=== PATIENT | male | born 1985 ===

== ENCOUNTER 2017-04-01 10:38 | Inpatient (IN) | payer OTHER ==
[~2017-04-01] VITALS: Ht 160 cm; Wt 53.1 kg
[2017-04-01] VITALS (9 sets, daily range): BP systolic 116–137; BP diastolic 58–94
[~2017-04-01 10:38] MED LIST: Bacitracin 50000 Units Vial ONE; Bupivacaine w/Epi 0.5% 30ml Vial INJ ONE; Surgicel 4in x 8in TOPIC ONE; Thrombin 5000 units TOPIC ONE; Vancomycin 1gm inj IVPB ONE; ceFAZolin sod 2 GM in D5W 110 ML IVPB ONE
--- NOTE | 2017-04-01 10:43 | Pre-Procedure Note/Attestation ---
Pre-Procedure Note/Attestation Complete Prior to Procedure Planned Procedure: not applicable Procedure Narrative: Right sided Hemilaminotomy foraminotomy microdiscectomy L5S1 Indications for Procedure Pre-Operative Diagnosis: L5S`1 herniated nucleus pulposus Attestation I attest that I discussed the nature of the procedure; its benefits; risks and complications; and alternatives (and the risks and benefits of such alternatives ), prior to the procedure, with the patient (or the patient's legal union representative). I attest that, if there was a reasonable possibility of needing a blood transfusion, the patient (or the patient's legal union representative) was given the [facility] standardized written summary, pursuant to the Eleuterio Myton Blood Safety Act ([place] Health and Safety Code # 1645, as amended). I attest that I re-evaluated the patient just prior to the surgery and that there has been no change in the patient's H&P, except as documented below: TODD REEDER Apr 01, 2017 10:43
[2017-04-01] MEDS ORDERED: HYDROmorphone 1mg/ml Carpuject SUBQ PRN (10:45)
[2017-04-01] MEDS ORDERED: Naloxone 0.4mg/ml Inj IVP PRN (10:45)
[2017-04-01] MEDS ORDERED: HYDROmorphone 1mg/ml Carpuject IVP PRN (10:45)
[2017-04-01] MEDS ORDERED: Milk of Magnesia 30ml Ud ORAL PRN (10:45)
[2017-04-01] MEDS ORDERED: Metoclopramide 10mg/2ml Inj IVP PRN (10:45)
[2017-04-01] MEDS ORDERED: Norco 7.5mg/325mg tab ORAL PRN ×2 (10:45)
[2017-04-01] MEDS ORDERED: Norco 5mg/325mg tab ORAL PRN ×2 (10:45→12:00)
--- NOTE | 2017-04-01 10:47 | Brief Operative Note ---
Immediate Post Operative Note Operative Note Chief Complaint: intractable back and leg pain Pre-op Diagnosis: L5S`1 herniated nucleus pulposus Procedure: Right sided Hemilaminotomy foraminotomy microdiscectomy L5S1 Post-op Diagnosis: same as pre-op Findings: consistent w/pre-op dx studies Surgeon: Willard First Cook: Lexis Anesthesia: general Specimen: none Complications: none Condition: stable Estimated Blood Loss: minimal Implant(s) used?: TODD Munoz Apr 01, 2017 10:47
[2017-04-01] MEDS ORDERED: NKM (11:17)
[2017-04-01] MEDS ORDERED: LR 1000ml 1,000 ML IVLG SCH (11:51)
--- NOTE | 2017-04-01 11:51 | Anethesia Preoperative Eval ---
Anesthesia Pre-op PMH/ROS General Date of Evaluation: Apr 01, 2017 Time of Evaluation: 11:48 ASA Score: ASA 1 Mallampati Score Class I : Soft palate, uvula, fauces, pillars visible Class II: Soft palate, uvula, fauces visible Class III: Soft palate, base of uvula visible Class IV: Only hard plate visible Mallampati Classification: Class III Surgeon: Willard Diagnosis: Lumbar HNP, radiculopathy Surgical Procedure: R Hemilaminotomy, foraminotomy, microdisectomy, decompression L5-S1 Anesthesia History: none Social History: alcohol use Family History: no anesthesia problems Allergies: Coded Allergies: No Known Allergies (Unverified , 03/31/17) Medications: see eMAR Anesthesia Pre-op Phys. Exam Physician Exam Last Vital Signs Date Time Temp Pulse Resp B/P Pulse Ox O2 Delivery O2 Flow Rate FiO2 04/01/17 11:04 98.6 56 18 121/70 100 Room Air Constitutional: NAD Neurologic: CN 2-12 intact Cardiovascular: RRR, no M/R/G Respiratory: CTA Gastrointestinal: S/NT/ND Airway Exam Mallampati Score: Class II MO: full ROM: full Teeth: missing - Right upper, left lower molars Anesthesia Pre-op A/P Labs WNL Studies Pre-op Studies: EKG - NSR, CXR - NAD Risk Assessment & Plan Assessment: Healthy Plan: GETA Status Change Before Surgery: No Pre-Antibiotics Drug: Ancef 2gm Given Within 1 Hr of Incision: Yes Time Given: 13:12 Asim Damian MD Apr 01, 2017 11:51
[2017-04-01] MEDS ORDERED: Meperidine 25mg/0.5ml Inj IV PRN (12:00)
[2017-04-01] MEDS ORDERED: Midazolam 2mg/2ml Inj IVP PRN (12:00)
[2017-04-01] MEDS ORDERED: fentaNYL 100 mcg/2 mL IV PRN (12:00)
[2017-04-01] MEDS ORDERED: Atropine Inj 1mg/10ml Syr IV PRN (12:00)
[2017-04-01] MEDS ORDERED: Hydromorphone 0.5mg/0.5ml inj IVP PRN (12:00)
--- NOTE | 2017-04-01 14:47 | Immediate Post-Op Evaluation ---
Immediate Post-Op Evalulation Immediate Post-Op Evalulation Date of Evaluation: Apr 01, 2017 Time of Evaluation: 14:45 IV Fluids: 1200 Estimated Blood Loss: 30 Urinary Output: 100 Blood Pressure Systolic: 116 Blood Pressure Diastolic: 63 Pulse Rate: 86 Respiratory Rate: 14 O2 Sat by Pulse Oximetry: 100 Temperature (Fahrenheit): 97.2 Pain Score (1-10): 3 Nausea: No Vomiting: No Complications None Patient Status: reacts, patent, extubated, none Hydration Status: adequate Drug: Ancef 2gm Given Within 1 Hr of Incision: Yes Time Given: 13:12 Asim aDmian MD Apr 01, 2017 14:47
--- NOTE | 2017-04-01 14:51 | 48 Hour Post Anesthesia Eval ---
Post Anesthesia Evaluation Date of Evaluation: Apr 01, 2017 Time of Evaluation: 14:57 Blood Pressure Systolic: 137 0: 58 Pulse Rate: 80 Respiratory Rate: 16 Temperature (Fahrenheit): 97.3 O2 Sat by Pulse Oximetry: 99 Airway: patent Nausea: No Vomiting: No Pain Intensity: 3 Hydration Status: adequate Cardiopulmonary Status: Stable Mental Status/LOC: patient returned to baseline Follow-up Care/Observations: N/A Post-Anesthesia Complications: None Follow-up care needed: patient intructions given Asim Damian MD Apr 01, 2017 14:51
--- NOTE | 2017-04-01 15:05 | Diagnostic Imaging Report ---
Indication: Back pain Comparison: None Findings: Single crosstable lateral view of the lumbar spine obtained. Instrument noted posterior to L5-S1. In pression: Intraoperative localization film
[2017-04-01] MEDS ORDERED: NS w/KCl 20mEq 1,000 ML IV SCH (17:00)
[2017-04-01] MEDS ORDERED: Dexamethasone 4mg/ml vial IVP SCH (18:00)
[2017-04-01] MEDS ORDERED: Docusate 100mg cap ORAL SCH (18:00)
--- NOTE | 2017-04-01 18:00 | Consultation ---
History of Present Illness General Date patient seen: Apr 01, 2017 Time patient seen: 17:57 Chief Complaint: low back pain Referring physician: Serafin Lamar MD Reason for Consultation: medical management postop Present Illness HPI 31 y/o man with L5/S1 HNP and radiculopathy, s/p Right sided Hemilaminotomy foraminotomy microdiscectomy L5S1 without any periop or postop complications. No chest pain or dyspnea, postop pain well controlled, no n/v. Allergies: Coded Allergies: No Known Allergies (Unverified , 03/31/17) Medication History Scheduled No Known Medications* (NKM - No Known Medications*), 0 ., (Reported) Patient History History Provided By: Patient Healthcare decision maker KEESHA ALDANA Resuscitation status Full Code Advanced Directive on File Past Medical/Surgical History Past Medical/Surgical History: (1) HNP (herniated nucleus pulposus), lumbar Family History Family History: (1) Family history in first degree relatives is unremarkable Social History Social History: (1) No significant social history Review of Systems ROS Narrative CONSTITUTIONAL: No weight loss, fever, chills, weakness or fatigue. HEENT: Eyes: No visual loss, blurred vision, double vision or yellow sclerae. Ears, Nose, Throat: No hearing loss, sneezing, congestion, runny nose or sore throat. SKIN: No rash or itching. CARDIOVASCULAR: No chest pain, chest pressure or chest discomfort. No palpitations or edema. RESPIRATORY: No shortness of breath, cough or sputum. GASTROINTESTINAL: No anorexia, nausea, vomiting or diarrhea. No abdominal pain or blood. NEUROLOGICAL: No headache, dizziness, syncope, paralysis, ataxia, numbness or tingling in the extremities. No change in bowel or bladder control. MUSCULOSKELETAL: No muscle pain, + back pain, no joint pain or stiffness. HEMATOLOGIC: No anemia, bleeding or bruising. LYMPHATICS: No enlarged nodes. No history of splenectomy. PSYCHIATRIC: No history of depression or anxiety. ENDOCRINOLOGIC: No reports of sweating, cold or heat intolerance. No polyuria or polydipsia. ALLERGIES: No history of asthma, hives, eczema or rhinitis. Physical Exam Physical Exam Narrative General: alert, cooperative, no distress, appears stated age Head: normocephalic, without obvious abnormality, atraumatic Eyes: conjunctivae/corneas clear. PERRL, EOM's intact Throat: lips, mucosa, and tongue normal. MMM Neck: supple, symmetrical, trachea midline, and no JVD Lungs: clear to auscultation bilaterally Heart: regular rate and rhythm, S1, S2 normal, no murmur, click, rub or gallop Abdomen: soft, non-tender, non-distended, bowel sounds normal; no masses or organomegaly Extremities: extremities normal, atraumatic, no cyanosis or edema Pulses: 2+ and symmetric Skin: skin color, texture, turgor normal; no rashes or lesions Neurologic: grossly normal, no focal deficits Last 24 Hour Vital Signs Date Time Temp Pulse Resp B/P Pulse Ox O2 Delivery O2 Flow Rate FiO2 04/01/17 15:59 97.2 64 20 122/60 96 Room Air 04/01/17 15:40 97.5 04/01/17 15:40 97.5 61 13 119/71 100 Nasal Cannula 3.0 04/01/17 15:25 61 13 118/65 100 Nasal Cannula 3.0 04/01/17 15:15 82 19 119/94 100 Nasal Cannula 3.0 04/01/17 15:00 74 14 118/70 100 Nasal Cannula 3.0 04/01/17 14:51 80 16 99 04/01/17 14:50 82 20 137/58 100 Nasal Cannula 3.0 04/01/17 14:47 86 14 100 04/01/17 14:45 67 20 116/63 100 Simple Mask 6.0 04/01/17 14:41 97.2 91 28 126/66 100 Simple Mask 6.0 04/01/17 11:04 98.6 56 18 121/70 100 Room Air Height (Feet): 5 Height (Inches): 3.00 Weight (Pounds): 117 Medications Current Medications Medications (Trade) Dose Ordered Sig/Tino Route PRN Reason Start Time Stop Time Status Last Admin Dose Admin Acetaminophen/ Hydrocodone Bitart ([place] 5/325) 1 tab Q1H PRN ORAL Mild Pain (Pain Scale 1-3) 04/01/17 12:00 04/01/17 18:00 Acetaminophen/ Hydrocodone Bitart ([place] 5/325) 1 tab Q3H PRN ORAL pain score 1-3 04/01/17 10:45 04/08/17 10:44 Acetaminophen/ Hydrocodone Bitart ([place] 7.5/325) 1 ea Q3H PRN ORAL pain score 4-6 04/01/17 10:45 04/08/17 10:44 Acetaminophen/ Hydrocodone Bitart ([place] 7.5/325) 2 ea Q3H PRN ORAL pain scale 7-10 04/01/17 10:45 04/08/17 10:44 Atropine Sulfate 0.5 mg 0.5 mg Q5M PRN IV BRADYCARDIA 04/01/17 12:00 04/01/17 18:00 Carisoprodol (Soma) 350 mg TIDPRN PRN ORAL SPASM 04/01/17 10:45 05/01/17 10:44 Cefazolin Sodium/ Dextrose (Ancef/D5W) 55 ml @ 110 mls/hr Q8H IV 04/01/17 21:00 04/02/17 13:29 Dexamethasone Sodium Phosphate (Decadron 4mg/ml vial) 4 mg Q6HR IVP 04/01/17 18:00 04/02/17 12:01 04/01/17 17:03 Docusate Sodium (Colace) 100 mg TWICE A DAY ORAL 04/01/17 18:00 05/01/17 17:59 04/01/17 17:03 Fentanyl Citrate (Sublimaze 100 mcg/2 mL) 25 mcg Q10M PRN IV Moderate Pain (Pain Scale 4-6) 04/01/17 12:00 04/01/17 18:00 Hydromorphone HCl (Dilaudid) 0.5 mg Q15M PRN IVP Severe Pain (Pain Scale 7-10) 04/01/17 12:00 04/01/17 18:00 Hydromorphone HCl (Dilaudid) 1 mg Q2H PRN IVP Breakthrough Pain 04/01/17 10:45 04/08/17 10:44 Hydromorphone HCl (Dilaudid) 1 mg Q4H PRN SUBQ Mild Pain (Pain Scale 1-3) 04/01/17 10:45 04/08/17 10:44 Hydromorphone HCl (Dilaudid) 2 mg Q3H PRN SUBQ Severe Pain (Pain Scale 7-10) 04/01/17 10:45 04/08/17 10:44 Hydromorphone HCl (Dilaudid) 2 mg Q4H PRN SUBQ Moderate Pain (Pain Scale 4-6) 04/01/17 10:45 04/08/17 10:44 Hydromorphone HCl 2 mg 2 mg BEDTIME PRN SUBQ HSPRN 04/01/17 10:45 04/08/17 10:44 Lactated Ringer's (Lactated Ringer's 1000ml) 1,000 ml @ 10 mls/hr Q24H IVLG 04/01/17 11:51 04/01/17 18:00 Magnesium Hydroxide (Mom) 30 ml QIDPRN PRN ORAL Constipation 04/01/17 10:45 05/01/17 10:44 Meperidine HCl (Demerol) 25 mg Q15M PRN IV Shivering 04/01/17 12:00 04/01/17 18:00 04/01/17 15:25 Metoclopramide HCl (Reglan) 10 mg Q6H PRN IVP Nausea & Vomiting 04/01/17 10:45 05/01/17 10:44 Midazolam HCl (Versed 2mg/2ml vial) 1 mg Q15M PRN IVP For Anxiety 04/01/17 12:00 04/01/17 18:00 Naloxone HCl (Narcan) 0.1 mg PRN PRN IVP RR<12/min, pt unarousable 04/01/17 10:45 05/01/17 10:44 Ondansetron HCl (Zofran) 4 mg Q1H PRN IVP Nausea & Vomiting 04/01/17 12:00 04/01/17 18:00 Ondansetron HCl (Zofran) 4 mg Q6H PRN IVP Nausea & Vomiting 04/01/17 10:45 05/01/17 10:44 Sodium Chloride (NS w/KCl 20mEq) 1,000 ml @ 100 mls/hr Q10H IV 04/01/17 17:00 05/01/17 16:59 04/01/17 16:59 Temazepam (Restoril) 15 mg HSPRN PRN ORAL Insomnia 04/01/17 10:45 04/08/17 10:44 Assessment/Plan Problem List: (1) HNP (herniated nucleus pulposus), lumbar Assessment & Plan: - s/p Right sided Hemilaminotomy foraminotomy microdiscectomy L5S1 - encourage mobilization/ambulation - encourage incentive spirometry to optimize pulmonary hygiene - DVT/GI prophylaxis as appropriate - ctm CBC and hemodynamics - ctm electrolytes, adjust/replete prn - PT/OT/ST, if indicated - pain control, supportive care, bowel regimen - DC planning ICD Codes: M51.26 - Other intervertebral disc displacement, lumbar region SNOMED: [id number] DIEGO HARRISON Apr 01, 2017 18:00
[2017-04-01] MEDS ORDERED: NORCO 10-325 T1 EACH ORAL (18:34)
[2017-04-01] MEDS ORDERED: ceFAZolin sod 1 GM in D5W 55 ML IV SCH (21:00)
--- NOTE | 2017-04-02 03:00 | Operative Note - Dictated ---
DATE OF OPERATION: 04/01/2017 DATE OF OPERATION: 04/01/2017. 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 ANESTHESIA: General endotracheal anesthesia. PREOPERATIVE DIAGNOSES: 1. Intractable back pain. 2. Intractable leg pain. 3. Worsening radiculopathy. 4. Weakness. 5. Herniated nucleus pulposus, L5-S1 herniation. 6. Neural foraminal stenosis, L5-S1 POSTOPERATIVE DIAGNOSES: 1. Intractable back pain. 2. Intractable leg pain. 3. Worsening radiculopathy. 4. Weakness. 5. Herniated nucleus pulposus, L5-S1 herniation. 6. Neural foraminal stenosis, L5-S1 PROCEDURES PERFORMED: 1. Right-sided L5-S1 microdiscectomy. 2. L5-S1 hemilaminotomy, foraminotomy and medial facetectomy. 3. L5-S1 neural foraminotomy through a transpedicular intraforaminal approach. 4. Use of intraoperative microscope. 5. Supervision and interpretation of intraoperative fluoroscopy. 6. Supervision and interpretation of somatosensory-evoked potential and free running EMG monitoring. EBL: Less than 100 mL. COMPLICATIONS: None. INDICATIONS FOR THE PROCEDURE: The patient presents for intractable back pain and radiculopathy. The patient tried and failed a prolonged course of conservative management, including but not limited to chiropractic therapy, physical therapy, nonsteroidal anti-inflammatory drugs, medication, ice packs as well as epidural injection. Despite these therapies, the patient still developed recalcitrant pain and elected for definitive management in the form of right-sided L5-S1 microdiscectomy, L5-S1 hemilaminotomy, foraminotomy and medial facetectomy and L5-S1 neural foraminotomy through a transpedicular intraforaminal approach. CONSENT: We had a long discussion with the patient regarding definitive surgical treatment options. The patient's MRI demonstrated herniated nucleus pulposus, L5-S1 herniation and neural foraminal stenosis, L5-S1 and as a result, I felt the patient would benefit from the discectomy as well as neural foraminotomy at this level. We had a long discussion with the patient regarding the risks, alternatives, and benefits of surgery. Our description of the risks included a discussion in person as well as a signed consent which detailed all pertinent risks and the procedure itself. Briefly, our discussion included but was not limited to infection, bleeding, pseudarthrosis, spinal cord injury, neurovascular injury, dural tear, CSF leak, neuropathy, paralysis, permanent weakness/drop foot, paresthesias blindness, palsy and weakness. The patient understood there may be a need for revision surgery or additional procedures. Approach related complications including dysphonia, dysphagia, blindness, permanent vocal cord and neural injury, hematoma, swallowing and breathing difficulty. Medical complications including liver, kidney, shock, and cardiopulmonary failure. Anesthesia complications including , swelling. Damage to the musculature, larynx (voice injury or loss),esophagus (throat), trachea, blood vessels and muscles (muscular sprain) and lungs (pneumothorax) during this surgical procedure. Injury to deeper structures may be temporary or permanent. The patient understood these and elected to proceed. A written and verbal consent was given. We discussed the pros and cons of all the alternatives. We discussed the uncertainties associated with the decision. Afterwards I assessed the patients understanding and explored their preferences. All questions were answered and no guarantees were given. Medical clearance was obtained prior to surgery OPERATIVE FINDINGS: A broad-based disc herniation at L5-S1 which encroached on the thecal sac and neural foraminal elements therein. This disc was acute in nature and not calcified. It was mobile and free floating and resected easily. There was also neural foraminal stenosis at L5-S1 DESCRIPTION OF PROCEDURE: Under the benefit of general endotracheal anesthesia and with the assistance of the entire operative team, the patient was moved from the rney onto the operative table in the prone position on a Maximus frame. The head was secured and positioned appropriately. Bilateral arms were secured with Gel pads and foam and all bony prominences were padded. The bilateral lower extremity SCD and DEVIN hose were placed for DVT prophylaxis. A surgical timeout was called which corroborated our planned procedure. Preoperative Antibiotics were administered within 30 minutes of the incision for prophylaxis. Decadron was given for preoperative steroids. Using lateral radiography, the operative levels were delineated. An incision was marked based on our interpretation of lateral radiography and afterwards the body was prepped and draped in the usual sterile manner. The family was notified that we were ready to commence surgery and were called in the waiting room hourly for updates An incision was based on our lateral fluoroscopic image to center the incision at the L5-S1 interspace. The wound was prepped and draped in the usual sterile fashion. Using a scalpel a midline incision was taken down through the skin and subcutaneous tissues until the overlying hemilamina of L5-S1 were visualized. Next, using meticulous hemostasis, hemilamotomies were dissected and retractors were placed. Using a [place] dental, we confirmed placement at the L5-S1 interspace. We next turned our attention to our decompression. A standard hemilaminotomy foraminotomy medial facetectomy was performed at each level in standard fashion using a Midas-Justino type AM8 drill bit, straight and angled curettage, and [place] 4 rongeurs until the lateral thecal sac margin and traversing nerve root was visualized. All remainders of the ligamentum flavum and lateral bony margins were resected in total with angled curettage and [place] 4 rongeurs until the lateral thecal sac margin and traversing nerve root was visualized and decompressed. We next turned our attention toward our L5-S1 microdiscectomy on the right side. A [place] 4 was used to gently mobilize the thecal sac medially and this was held retracted with a bayonetted nerve root retractor. It was at this point that we noted a large broad-based disc protrusion with encroachment dorsally on the thecal sac neural foraminal contents. A bayonet and nerve root retractor was then placed carefully to retract the thecal sac and a discectomy was performed using a combination of a long handled 15 blade scalpel, downgoing and straight pituitaries and downgoing curettage. Afterward the disc space was irrigated twice with 20 mL of antibiotic-impregnated saline. All loose and free-floating disc fragments were carefully resected with a narrow pituitary. Having been satisfied with our decompression after our discectomy of all neural elements, we next turned our attention to our neural foraminoplasty/foraminotomy. This was performed through a transpedicular intraforaminal approach using an access probe followed by a neuro check device, which confirmed ventral placement of our nerve root. Once we confirmed we were safe, we next turned our attention towards placement of our size 10 file under direct microscopic visualization and under lateral fluoroscopy. Using pre and post reciprocation imaging, we were able to visualize our direct decompression given the reciprocation allowed for re-creation of the neural foraminal arch at L5-S1. Afterwards, hemostasis was obtained with 60 mL of antibiotic-impregnated saline followed by FloSeal and Gelfoam. After sponge and needle count were found to be correct, we next turned our attention to closure. Closure consisted of 1-0 Vicryl in standard interrupted fashion. Zosyn was placed deep to the fascia and superficial to the fascia for antibiotic prophylaxis. Skin closure was performed with 2-0 Vicryl in interrupted fashion followed by a running Monocryl for the skin. Final dressings consisted of Dermabond for the superficial skin, Telfa and Tegaderm. The patient tolerated the procedure well. The patient was extubated after the conclusion of surgery without incident. We discussed the findings of the surgery with the family upon completion of the case. At this point the patient will be transferred to the spine floor for further observation. Serafin Lamar M.D. DR: GAUTAM JOB#: [id number] CC:
== END 2017-04-01 19:43 | disposition home or self-care (01) | DRG 520 ==
LOC: SDSOVERFLO 10:38 → 3E 15:42
PROC: 01NB0ZZ Release Lumbar Nerve, Open Approach (ICD-10-PCS; principal; 2017-04-01 12:00)
PROC: 0SB40ZZ Excision of Lumbosacral Disc, Open Approach (ICD-10-PCS; principal; 2017-04-01 12:00)
DX: M51.17 Intervertebral disc disorders with radiculopathy, lumbosacral region (principal); M48.07 Spinal stenosis, lumbosacral region
CPT/HCPCS: 36415; 72020; 76000; 86850; 86900; 86901; 87081; J2180